=== PATIENT | male | born 1990 | race Asian ===

== ENCOUNTER 2024-04-26 06:02 | Day surgery (SDC) | payer OTHER ==
[~2024-04-26] VITALS: Ht 165.1 cm; Wt 77.6 kg
[2024-04-26] MEDS ORDERED: ONDANSETRON 4MG 2ML VIAL As Ordered ONE (07:02)
[2024-04-26] MEDS ORDERED: SUGAMMADEX SODIUM 500 MG/5 ML VIAL (BRIDION) As Ordered ONE (07:02)
[2024-04-26] MEDS ORDERED: ROCURONIUM BROMIDE 50MG/5ML VIAL As Ordered ONE (07:02)
[2024-04-26] MEDS ORDERED: LIDOCAINE 2% 100MG/5ML SDV (FOR ANES.) As Ordered ONE (07:02)
[2024-04-26] MEDS ORDERED: propofoL 200 MG/20 ML VIAL As Ordered ONE (07:02)
[2024-04-26] MEDS ORDERED: MIDAZOLAM INJ 2MG/2ML VIAL As Ordered ONE (07:03)
[2024-04-26] MEDS ORDERED: fentaNYL 100 MCG/2 ML INJECTION As Ordered ONE (07:03)
[2024-04-26] MEDS ORDERED: dexmedeTOMIDine (4MCG/ML)200MCG/50ML BTL (PRECEDEX) As Ordered ONE (07:03)
[2024-04-26] MEDS ORDERED: ACETAMINOPHEN 1000MG/100ML IV BAG As Ordered ONE (07:03)
[2024-04-26] MEDS ORDERED: GLYCOPYRROLATE INJ 0.2 MG/ML 2 ML VIAL As Ordered ONE (07:04)
[2024-04-26] MEDS ORDERED: LR 1,000 ML IV SCH ×2 (07:15→11:35)
[2024-04-26] MEDS ORDERED: LACRILUBE (AKWA TEARS) OPHTH OINT 3.5GM As Ordered ONE (07:20)
[2024-04-26] MEDS ORDERED: dexAMETHasone 10MG/1ML VIAL PRES.FREE PN ONE (07:25)
[2024-04-26] MEDS ORDERED: fentaNYL 100 MCG/2 ML INJECTION IV PRN ×2 (07:25→11:35)
[2024-04-26] MEDS ORDERED: ROPIvacaine 0.5% 30ML VIAL PN ONE (07:25)
[2024-04-26] MEDS ORDERED: MIDAZOLAM INJ 2MG/2ML VIAL IV PRN (07:25)
[2024-04-26] MEDS: ceFAZolin SOD 2 GM in IV 1 EA IV ONE (08:10)
[2024-04-26] MEDS ORDERED: TRANEXAMIC ACID 100 MG/ML 10ML VIAL As Ordered ONE (08:44)
[2024-04-26] MEDS: TRANEXAMIC ACID 100 MG/ML 10ML VIAL IV ONE (08:45)
[2024-04-26] MEDS ORDERED: HYDROmorphone HCL 2MG/ML 1ML VIAL As Ordered ONE (10:05)
[2024-04-26] MEDS: VANCOMYCIN 1000MG/20ML VIAL As Ordered ONE (10:19)
[2024-04-26] MEDS ORDERED: oxyCODONE 5MG TAB PO PRN (11:35)
[2024-04-26] MEDS ORDERED: ONDANSETRON 4MG 2ML VIAL IV PRN (11:35)
[2024-04-26] MEDS ORDERED: HYDROMORPHONE HCL 0.5 MG/ 0.5 ML SYRINGE IV PRN (11:35)
[2024-04-26 12:49] VITALS: BP 129/80; TEMP 97.5; O2SAT 98
== END 2024-04-26 13:03 | disposition home or self-care (01) ==
LOC: M SDC 06:02
PROVIDERS: ATTEND Orthopaedic Surgery
DX: S86.021D Laceration of right Achilles tendon, subsequent encounter (principal); R06.83 Snoring
CPT/HCPCS: 27650; C1713; J0131; J0690; J1100; J1171; J1596; J2250; J2405; J3010; J3370